=== PATIENT | female | born 1985 | race Caucasian/White ===

== ENCOUNTER 2024-12-18 13:28 | Emergency (ER) | payer OTHER, SELFPAY ==
[2024-12-18 14:50] VITALS: BP 150/76; PULSE 94; RESP 17; TEMP 37.2; O2SAT 100; BMI 24.5
[2024-12-18 21:00] VITALS: BP 138/83; PULSE 82; RESP 19; TEMP 35.9; O2SAT 98
--- NOTE | 2024-12-18 23:11 | ED.EXTPRO ---
HPI - Extremity Problem General Chief complaint: Extremity Problem,Nontraumatic Stated complaint: Possible Left thumb infection Time Seen by Provider: 12/18/24 22:15 Source: patient Mode of arrival: Ambulatory History of Present Illness HPI Narrative: 39yo female with history of right thumb infection 4-5 years ago treated medically with oral antibiotics, now with atraumatic left thumb swelling. No recent nail or finger procedures. No new activities. No redness or swelling to left hand or other fingers. No new rings or contact exposures. No fevers or chills. Some stiffness and pain with attempts bending the finger. No history of gout or arthritis. Related Data Previous Rx's ?Medication ?Instructions ?Recorded cephalexin 500 mg capsule 500 mg PO QID 7 days #28 caps 12/18/24 sulfamethoxazole 800 1 tab PO BID #14 tabs 12/19/24 mg-trimethoprim 160 mg tablet (Bactrim DS) Allergies Allergy/AdvReac Type Severity Reaction Status Date / Time No Known Drug Allergies Allergy Verified 12/18/24 14:50 Patient History Social History Smoking Status: Never smoker Smoking Status: Never smoker Exam Narrative Exam Narrative: GENERAL: Well-developed patient, in mild distress. HEAD: Atraumatic. Normocephalic. EYES: Pupils equal round and reactive. Extraocular motions intact. No scleral icterus. No injection or drainage. ENT: Nose without bleeding, purulent drainage. Throat without erythema, tonsillar hypertrophy or exudate. Airway patent. NECK: Trachea midline. Non tender CARDIOVASCULAR: Regular rate and rhythm without murmurs, gallops, or rubs. RESPIRATORY: Clear to auscultation. Breath sounds equal bilaterally. No wheezes, rales, or rhonchi. GASTROINTESTINAL: Abdomen soft, non-tender, nondistended. EXTREMITIES: Left thumb with some slight swelling IP to distal tip, no periungual abscess or subungual hematoma, some decrease ROM flexion at IP due to pain. No weeping or open wounds, no crepitance, no orellana/vesicles, no discharge from under nailbed, no false fingernails or cuticle changes. No swelling or redness to left hand or other fingers. BACK: Nontender without deformity or crepitance. No flank tenderness. NEURO: AOx3. Motor functions grossly nonfocal. SKIN: No rash or erythema of visible areas Initial Vital Signs Initial Vital Signs: Vital Signs Temperature 98.9 F 12/18/24 14:50 Pulse Rate 94 H 12/18/24 14:50 Respiratory Rate 17 12/18/24 14:50 Blood Pressure 150/76 H 12/18/24 14:50 Pulse Oximetry 100 12/18/24 14:50 Oxygen Delivery Method Room Air 12/18/24 14:50 Course Orders Ordered: Discontinued Medications Cephalexin HCl (Cephalexin 250 Mg Capsule) 500 mg PO NOW ONE Stop: 12/18/24 23:22 Last Admin: 12/18/24 23:28 Dose: 500 mg Documented By: TRACE Tramadol HCl (Tramadol 50 Mg Prepack) 1 bottle MISC DIRECTED ONE Stop: 12/18/24 23:23 Last Admin: 12/18/24 23:28 Dose: 1 bottle Documented By: TRACE Trimethoprim/Sulfamethoxazole (Trimeth/Sulfa 160/800 (Ds) Tablet) 1 tab PO NOW ONE Stop: 12/18/24 23:22 Last Admin: 12/18/24 23:28 Dose: 1 tab Documented By: TRACE Vital Signs Vital signs: Vital Signs - 8 hr 12/18/24 21:00 Temperature 96.6 F L Pulse Rate 82 Respiratory Rate 19 Blood Pressure 138/83 Pulse Oximetry 98 Oxygen Delivery Method Room Air MDM - Extremity (Nontraumatic) MDM Narrative Medical decision making narrative: 39yo femal with atraumatic left thumb swelling and pain, similar right thumb swelling pain 4-5 years ago treated with PO antibiotics medically, no fever, mild swelling, exam suspicious for cellulitis if no trauma, XR thumb showed no obvious fracture. DDx likely cellulitis if no occult trauma; doubt septic joint, gout, RA. Thumb spica splint. PO Keflex and PO Bactrim antibiotics started, Rx sent for 7 days course oth antibiotics, FU with local ortho advised. DC home. Return precautions discussed. Discharge Plan Departure Patient Disposition: Home Clinical Impression: Cellulitis of left thumb Instructions: DI for Cellulitis -- Adult Activity Restrictions/Additional Instructions: Nontraumatic left thumb swelling and pain, similar to event 5 years ago with right thumb infection treated medically with antibiotics, no surgical interventions at that time. No recent nail procedures or manicures or changes. Trial of antibiotic cephalexin and Bactrim. Home pack of tramadol pain medication to use if needed. Consider [id number] anti-inflammatory Motrin or naproxen. On x-ray there some small ossicle bone fragment like changes at the interphalangeal joint of the left thumb, official radiology report is pending, these could be old ossicles or old injury arthritic like changes, unclear if this represents any recent fracture. We will splint to help protect that joint in case there is a suspected fracture. With still recommend course of antibiotics in case there is infection, based on your prior history of cellulitis of thumb in the past. Trial of antibiotics. Follow up with Orthopedic surgery Clinic advised in the next couple of days. Return to this/nearest emergency department for any change worsening symptoms or any concerns prior. Prescriptions: New cephalexin 500 mg capsule 500 mg PO QID 7 Days Qty: 28 0RF sulfamethoxazole-trimethoprim [Bactrim DS] 800-160 mg tablet 1 tab PO BID Qty: 14 0RF Referrals: Joan Denny DO [Physician, Orthopedic Surgery] Stand Alone Forms: Patient Portal/API
--- NOTE | 2024-12-18 23:20 | DI.RAD.S_ITS ---
PROCEDURE: XR FINGER LT MIN 2V INDICATIONS: left thumb pain TECHNIQUE: AP hand, 2 views of the 1st finger(s) acquired. COMPARISON: None. FINDINGS: Bones: No fractures or dislocations. No suspicious bony lesions. Soft tissues: No suspicious soft tissue calcifications. IMPRESSION: No visualized acute fracture or dislocation. However, if clinical concern and/or pain persist, short interval imaging followup in 7-10 days is recommended, as occult injury cannot be definitively excluded. Dictated by: Lisa Garcia M.D. on 12/19/2024 at 0:35 Approved by: Lisa Garcia M.D. on 12/19/2024 at 0:35
[2024-12-18] MEDS: TRIMETH/SULFA 160/800 (DS) TABLET 1 TAB PO (23:28)
[2024-12-19 00:54] VITALS: BP 126/80; PULSE 70; RESP 18; O2SAT 100
== END 2024-12-19 00:56 | disposition home or self-care (01) ==
PROVIDERS: Emergency Provider Emergency Medicine
DX: L03.012 Cellulitis of left finger (principal)
CPT/HCPCS: 73140; 99283

== ENCOUNTER 2024-12-23 15:31 | Emergency (ER) | payer OTHER, SELFPAY ==
[2024-12-23] VITALS (13 sets, daily range): BP systolic 94–131; BP diastolic 52–72; PULSE 102–138; RESP 19–25; TEMP 38.2; O2SAT 97–100; BMI 24.9
--- NOTE | 2024-12-23 16:07 | EKG_ITS ---
[facility] [address] [address] Test Date: 2024-12-23 Pat Name: Yanna Kemp Department: [facility] Room: Gender: Female Development Administrator: EMERY : 1985 Requested By: Order Number: [id number] Reading MD: Vega Cantu MD Measurements Intervals [place] Rate: 112 P: 22 IL: 114 QRS: 57 QRSD: 72 T: 31 QT: 310 QTc: 423 Interpretive Statements Sinus tachycardia Electronically Signed On 12-24-2024 6:42:08 PDT by Vega Cantu MD
--- NOTE | 2024-12-23 16:07 | DI.RAD.S_ITS ---
PROCEDURE: XR CHEST 1V INDICATIONS: Chest Pain TECHNIQUE: One view of the chest was acquired. COMPARISON: None. FINDINGS: Surgical changes and devices: None. Lungs and pleura: Lungs are clear. No pleural effusions or pneumothorax. Mediastinum: Mediastinal contours appear normal. Heart size is normal. Bones and chest wall: No suspicious bony lesions. Overlying soft tissues appear unremarkable. IMPRESSION: No acute cardiopulmonary abnormality is seen. Dictated by: Alisha Robledo M.D. on 12/23/2024 at 16:52 Approved by: Alisha Robledo M.D. on 12/23/2024 at 16:53
[2024-12-23 16:27] LABS: Add Manual Diff / Slide Review NO; Hematocrit 41.2 % (36-46); Hemoglobin 13.9 g/dL (12.0-16.0); Lymphocytes Absolute Auto 200 /uL (1100-4500); Mean Corpuscular HGB Conc 33.7 % (30-36); Mean Corpuscular Hemoglobin 31.1 PG (26-34); Mean Corpuscular Volume 92.5 fL (80-100); Platelet Count 205 X10^3/uL (150-400)
[2024-12-23 16:32] LABS: INR 1.0 (0.9-1.3); Prothrombin Time 11.3 SECONDS (9.4-12.5)
[2024-12-23 16:35] LABS: PTT Partial Thromboplastin Tim 28 SECONDS (25.1-36.5)
[2024-12-23 16:37] LABS: Alanine Aminotransferase 19 IU/L (<35); Albumin 4.6 g/dL (3.5-5.0); Albumin Globulin Ratio 1.3 (1.0-2.8); Alkaline Phosphatase 72 U/L (38-126); Blood Urea Nitrogen 12 mg/dL (7-17); Calcium 9.1 mg/dL (8.4-10.2); Carbon Dioxide 27 mmol/L (22-32); Chloride 100 mmol/L (98-107); Creatine Kinase 58 U/L (30-135); Estimated Glomerular Filt Rate > 60 mL/min (>60); Globulin 3.6 g/dL (1.7-4.1); Glucose 114 mg/dL (70-99); HEMOLYSIS < 15 (0-50); Lipase 34 U/L (23-300); Magnesium 1.8 mg/dL (1.6-2.3); Potassium 3.5 mmol/L (3.4-5.1); Sodium 136 mmol/L (137-145); Total Protein 8.2 g/dL (6.3-8.2)
[2024-12-23 16:48] LABS: NT-proBNP (BNP-Adult 18+) 133 pg/mL (<125); Troponin I < 0.012 ng/mL (0.01-0.034)
--- NOTE | 2024-12-23 19:15 | ED.CHESTPAIN ---
HPI - Chest Pain General Chief Complaint: Chest Pain Stated Complaint: chest pain, chills - thumb infection Time Seen by Provider: 12/23/24 19:15 Source: patient Mode of arrival: Ambulatory Limitations: no limitations History of Present Illness HPI narrative: Patient is a 39-year-old female no significant past medical history comes into the ED from home for evaluation of left-sided chest pain states it started at 3:00 p.m. intermittent she states it is sharp and shooting but not pleuritic, she also mentions that she has been on Bactrim and Keflex for left thumb infection that started on 12/18/2014, she states that this is better but is wondering if this is causing her symptoms. She denies any other symptoms at this time. Related Data Previous Rx's ?Medication ?Instructions ?Recorded cephalexin 500 mg capsule 500 mg PO QID 7 days #28 caps 12/18/24 sulfamethoxazole 800 1 tab PO BID #14 tabs 12/19/24 mg-trimethoprim 160 mg tablet (Bactrim DS) Allergies Allergy/AdvReac Type Severity Reaction Status Date / Time No Known Drug Allergies Allergy Verified 12/23/24 10:53 Review of Systems Review of Systems Narrative: General: Denies fever, chills, weight loss HEENT: Denies headache, eye drainage, eye irritation, head trauma, sore throat, voice change Cardiovascular: Positive chest pain, denies palpitations, tachycardia Respiratory: Denies any shortness of breath, cough, wheeze, stridor GI/: Denies any abdominal pain, nausea, vomiting, diarrhea, bright red blood per rectum, melanotic stools, urinary frequency, urinary retention, dysuria, hematuria MSK: Denies any joint pain, muscle pains, swelling Skin: Denies any rashes, lesions, discoloration Neuro: Denies any headache, lightheadedness, dizziness, fainting, weakness Psych: Denies SI/HI Exam Narrative Exam Narrative: General: Cooperative, well-developed, not in acute distress HEENT: Normocephalic, atraumatic, PERRLA, normal sclera, eyelids normal Neck: Active full range of motion, atraumatic Chest: Normal to inspection, negative crepitus, no overlying erythema ecchymosis Respiratory: Normal respiratory effort, not in acute respiratory distress, clear to auscultation bilaterally negative cough, wheeze, tachypnea, rhonchi, rales Cardiology: Regular rate rhythm negative gallop, murmur, rubs GI/: No tenderness to palpation, soft, non rigid, normal to inspection, exam deferred MSK: Full active range of motion in all 4 extremities, atraumatic, no tenderness to palpation of any bony prominences Skin: No rashes or lesions noted Neuro: Alert awake oriented x3, moves all 4 extremities spontaneously, cranial nerves intact, able to answer all questions appropriately follows commands appropriately Psych: Cooperative, negative suicidal or homicidal ideations Initial Vital Signs Initial Vital Signs: Vital Signs Temperature 100.7 F H 12/23/24 15:59 Pulse Rate 138 H 12/23/24 15:59 Respiratory Rate 19 12/23/24 15:59 Blood Pressure 124/72 12/23/24 15:59 Pulse Oximetry 100 12/23/24 15:59 Oxygen Delivery Method Room Air 12/23/24 15:59 Course Orders Ordered: ED Orders 12/23/24 16:07 XR chest 1V Stat EKG-12 Lead Stat 12/23/24 16:15 Complete Blood Count AUTO DIFF Stat Comprehensive Metabolic Panel Stat Lipase Stat Magnesium Stat NT-proBNP (BNP-Adult 18+) Stat PTT Partial Thromboplastin Sebas Stat Prothrombin Time INR Stat Troponin & CK Cardiac Panel Stat 12/23/24 20:16 Respiratory Panel (Film Array) Stat Trop I [Troponin I] Stat Discontinued Medications Aspirin (Aspirin 81 Mg Chew Tab) 324 mg PO NOW ONE Stop: 12/23/24 16:08 Sodium Chloride (Normal Saline 0.9%) 1,000 mls @ 1,000 mls/hr IV BOLUS ONE Stop: 12/23/24 20:24 Vital Signs Vital signs: Vital Signs - 8 hr 12/23/24 15:59 12/23/24 16:13 12/23/24 16:13 Temperature 100.7 F H Pulse Rate 138 H 126 H Respiratory Rate 19 22 Blood Pressure 124/72 131/68 Pulse Oximetry 100 99 Oxygen Delivery Method Room Air Room Air 12/23/24 16:30 12/23/24 16:30 12/23/24 17:00 Temperature Pulse Rate 118 H 118 H Respiratory Rate 24 20 Blood Pressure 119/63 Pulse Oximetry 100 100 Oxygen Delivery Method Room Air 12/23/24 17:00 12/23/24 17:30 12/23/24 17:30 Temperature Pulse Rate 117 H Respiratory Rate 23 Blood Pressure 117/65 115/67 Pulse Oximetry 100 Oxygen Delivery Method Room Air 12/23/24 18:00 12/23/24 18:00 12/23/24 18:30 Temperature Pulse Rate 117 H 116 H Respiratory Rate 20 20 Blood Pressure 115/58 L Pulse Oximetry 100 100 Oxygen Delivery Method Room Air 12/23/24 18:30 12/23/24 19:00 12/23/24 19:00 Temperature Pulse Rate 113 H Respiratory Rate 25 H Blood Pressure 110/59 L 108/56 L Pulse Oximetry 97 Oxygen Delivery Method 12/23/24 19:30 12/23/24 19:30 12/23/24 20:00 Temperature Pulse Rate 117 H 112 H Respiratory Rate 20 19 Blood Pressure 107/54 L Pulse Oximetry 99 98 Oxygen Delivery Method 12/23/24 20:00 12/23/24 20:30 12/23/24 20:30 Temperature Pulse Rate 107 H Respiratory Rate 20 Blood Pressure 101/59 L 94/52 L Pulse Oximetry 99 Oxygen Delivery Method MDM - Chest Pain Lab Data 12/23/24 16:15 12/23/24 16:15 Labs: Lab Results 12/23/24 12/23/24 Range/Units 16:15 20:16 WBC 7.2 (4.5-11.0) X10^3/uL RBC 4.46 (4.0-5.2) X10^6/uL Hgb 13.9 (12.0-16.0) g/dL Hct 41.2 (36-46) % MCV 92.5 (80-100) fL MCH 31.1 (26-34) PG MCHC 33.7 (30-36) % RDW 12.5 (11.6-14.8) % Plt Count 205 (150-400) X10^3/uL Neut % (Auto) 91.5 H (50-75) % Lymph % (Auto) 2.2 L (25-40) % Mathews % (Auto) 3.0 (3-14) % Eos % (Auto) 2.8 (2-4) % Baso % (Auto) 0.5 (0-2) % Neut # (Auto) 6600 (4818-2805) /uL Lymph # (Auto) 200 L (1695-0323) /uL Mathews # (Auto) 200 (0-900) /uL Eos # (Auto) 200 (0-450) /uL Baso # (Auto) 0 (0-100) /uL PT 11.3 (9.4-12.5) SECONDS INR 1.0 (0.9-1.3) APTT 28 (25.1-36.5) SECONDS Sodium 136 L (137-145) mmol/L Potassium 3.5 (3.4-5.1) mmol/L Chloride 100 (98-107) mmol/L Carbon Dioxide 27 (22-32) mmol/L BUN 12 (7-17) mg/dL Creatinine 0.87 (0.52-1.04) mg/dL Estimated GFR > 60 (>60) mL/min BUN/Creatinine Ratio 13.8 (6-22) Glucose 114 H (70-99) mg/dL Calcium 9.1 (8.4-10.2) mg/dL Magnesium 1.8 (1.6-2.3) mg/dL Total Bilirubin 0.2 (0.2-1.3) mg/dL AST 25 (14-36) IU/L ALT 19 (<35) IU/L Alkaline Phosphatase 72 (38-126) U/L Total Creatine Kinase 58 (30-135) U/L Troponin I < 0.012 < 0.012 (0.01-0.034) ng/mL NT-Pro-B Natriuret Pep 133 H (<125) pg/mL Total Protein 8.2 (6.3-8.2) g/dL Albumin 4.6 (3.5-5.0) g/dL Globulin 3.6 (1.7-4.1) g/dL Albumin/Globulin Ratio 1.3 (1.0-2.8) Lipase 34 (23-300) U/L Chlamy pneumoniae PCR Not detected (Not Detect) Adenovirus (PCR) Not detected (Not Detect) B. pertussis DNA (PCR) Not detected (Not Detect) B.parapertussis DNA PCR Not detected (Not Detecte) Coronavirus OC43 (PCR) Not detected (Not Detect) Coronavirus HKU1 (PCR) Not detected (Not Detect) Coronavirus 229E (PCR) Not detected (Not Detect) SARS-CoV-2 (PCR) Not detected (Not Detecte) Coronavirus NL63 (PCR) Not detected (Not Detect) Human Metapneumovir PCR Not detected (Not Detect) Influenza Type A (PCR) Not detected (Not Detect) Influenza Type B (PCR) Not detected (Not Detect) M. pneumoniae (PCR) Not detected (Not Detect) Parainfluenza 1 (PCR) Not detected (Not Detect) Parainfluenza 2 (PCR) Not detected (Not Detect) Parainfluenza 3 (PCR) Not detected (Not Detect) Parainfluenza 4 (PCR) Not detected (Not Detect) RSV (PCR) Not detected (Not Detect) Entero/Rhino (PCR) Not detected (Not Detect) Point of Care Testing Test Results Negative Urine Dip Bedside Urine Glucose Negative Bedside Urine Bilirubin - Negative Bedside Urine Ketone - Negative Urine Specific [place] 1.010 Bedside Urine Occult Blood +/- Bedside Urine pH 6.0 Bedside Urine Protein - Negative Bedside Urine Urobilinogen - Negative Bedside Urine Nitrite - Negative Bedside Urine Leukocytes - Negative Esterase ECG Data Interpretation: EKG interpreted by ED physician sinus tachycardia 112 beats per minute QTC 423, QRS TN interval within normal limits, no STEMI MDM Narrative Medical decision making narrative: 39-year-old female no significant past medical history comes into the ED from home for evaluation of left-sided chest pain, states it started spontaneously 3:00 p.m., states that it was sharp and shooting nonpleuritic states that she is not having the pain currently. To note she states that she has been taking Bactrim and Keflex for a left thumb infection started on 12/18/2024, she states that this has significantly improved, however she states she wanted to mention this given the fact that she felt like she was having fevers and chills earlier today with these symptoms. At time of evaluation patient afebrile no chest pain, EKG nonischemic but does show sinus tachycardia. Troponin negative x2, patient without any leukocytosis, Chem panel unremarkable, chest x-ray without any acute cardiopulmonary abnormality. Patient received 1 L normal saline. Patient had improvement of her heart rate after administration of 1 L normal saline, patient with a heart score of 0, patient was instructed to follow up with the primary care and Cardiology in outpatient setting symptoms more likely secondary to costochondritis versus precordial catch. She agrees to being discharged home with outpatient follow up Discharge Plan Departure Patient Disposition: Home Clinical Impression: Chest pain Instructions: DI for Chest Pain Activity Restrictions/Additional Instructions: Please follow up with the primary care and Cardiology in outpatient setting Please read the discharge instructions sheet carefully and bring all papers to all doctor follow-up visits, as it may contain information that your doctor may want to see. Disease processes change and evolve, if your symptoms worsen or if you develop any new symptoms that are concerning to you please return for evaluation. Your evaluation today does not show any evidence of any life-threatening/serious illnesses requiring admission to the hospital or surgery. Please follow-up with your doctor for re-evaluation in approximately 1 day. Seek immediate medical attention for any worrisome symptoms. *If you do not have a primary care provider please contact the [facility] Resource line at [phone]. They will ask some questions about your medical history and help get you set up with a doctor in the community. Prescriptions: No Action cephalexin 500 mg capsule 500 mg PO QID 7 Days Qty: 28 0RF sulfamethoxazole-trimethoprim [Bactrim DS] 800-160 mg tablet 1 tab PO BID Qty: 14 0RF Referrals: Milo Conley MD [Physician, Cardiology] Miscellaneous,MD Jun [Primary Care Provider, Medical] Stand Alone Forms: Patient Portal/API
[2024-12-23] MEDS: SODIUM CHLORIDE 0.9% 1,000 ML 1000 ML IV (19:25)
[2024-12-23 20:46] LABS: Troponin I < 0.012 ng/mL (0.01-0.034)
[2024-12-23 21:27] LABS: Coronavirus NL 63 Not Detected (Not Detect); SARS- CoV-2 Not Detected (Not Detecte)
== END 2024-12-23 21:47 | disposition home or self-care (01) ==
PROVIDERS: Emergency Provider Student in an Organized Health Care Education/Training Program
DX: R07.9 Chest pain, unspecified (principal); L03.012 Cellulitis of left finger; Z68.25 Body mass index [BMI] 25.0-25.9, adult
CPT/HCPCS: 36415; 71045; 80053; 81003; 81025; 82550; 83690; 83735; 83880; 84484; 85025; 85610; 85730; 87633; 93005; 93010; 96360; 96361; 99213; 99284